=== PATIENT | female | born 1990 | race Caucasian/White ===

== ENCOUNTER 2018-01-25 08:21 | Emergency (ER) | payer MEDICAID, OTHER ==
[~2018-01-25] VITALS: Ht 157.5 cm; Wt 86.0 kg
[~2018-01-25 08:21] MED LIST: ALBUTEROL INH; HYDR28CR14 TOP; IBUP-1984 PO; IBUP-1985 PO; LEVA15HF4 IH; PRENATAL VIT
[2018-01-25 08:50] LABS: BASOPHILS % (AUTO) 0.2 % (0-1); EOSINOPHILS # (AUTO) 0.2 X10'3 (0-0.9); HEMATOCRIT 36.9 % (35.0-45.0); HEMOGLOBIN 11.9 g/dl (12.0-16.0); LYMPHOCYTES # (AUTO) 1.1 X10'3 (1.1-4.8); LYMPHOCYTES % (AUTO) 5.4 % (21-51); MEAN CORPUSCULAR HEMOGLOBIN 23.5 PG (27.0-31.0); MEAN CORPUSCULAR HGB CONC 32.1 % (33.0-36.5); MEAN CORPUSCULAR VOLUME 73.3 FL (78-98); MEAN PLATELET VOLUME 7.8 FL (7.4-10.4); MONOCYTES % (AUTO) 4.6 % (2-12); NEUTROPHILS # (AUTO) 18.8 X10'3 (1.8-7.7); NEUTROPHILS % (AUTO) 88.8 % (42-75); PLATELET COUNT 422 X10'3 (140-440); RED BLOOD COUNT 5.03 X10'6 (4.20-5.60); RED CELL DISTRIBUTION WIDTH 16.3 % (11.5-14.5); WHITE BLOOD COUNT 21.2 X10'3 (4.5-11.0)
[2018-01-25 09:07] LABS: CLARITY,URINE SLIGHTLY CLOUDY (Clear); COLOR,URINE YELLOW (Yellow); GLUCOSE, URINE NEGATIVE (Neg); KETONES,URINE NEGATIVE (Neg); LEUKOCYTE ESTERASE ,URINE MODERATE (Neg); NITRITES, URINE NEGATIVE (Neg); OCCULT BLOOD,URINE SMALL (Neg); PH,URINE 6.5 (4.8-8.0); PROTEIN,URINE TRACE mg/dl (Neg); URINE HCG NEGATIVE (NEG)
[2018-01-25 09:09] LABS: INR 1.1 INR; PROTHROMBIN TIME 11.5 SECONDS (9.0-12.0)
[2018-01-25 09:11] LABS: UA COLLECTION TYPE CLN CATCH MIDSTREAM
[2018-01-25 09:14] LABS: ALANINE AMINOTRANSFERASE 33 U/L (12-78); ALBUMIN 4.2 G/DL (3.4-5.0); ALBUMIN/GLOBULIN RATIO 0.9 (1.1-1.5); ALKALINE PHOSPHATASE 83 IU/L (46-116); ANION GAP 9 (8-16); ASPARTATE AMINO TRANSFERASE 14 U/L (10-37); BLOOD UREA NITROGEN 12 MG/DL (7-18); BUN/CREATININE RATIO 11.5 (6.6-38.0); CALCIUM 9.2 MG/DL (8.5-10.1); CHLORIDE 101 MMOL/L (99-107); CREATININE 1.04 MG/DL (0.40-0.90); GLUCOSE 104 MG/DL (70-104); LIPASE 125 U/L (73-393); POTASSIUM 3.4 MMOL/L (3.5-5.1); SODIUM 137 MMOL/L (135-145); TOTAL CARBON DIOXIDE 26.6 MMOL/L (24-32); TOTAL PROTEIN 8.7 G/DL (6.4-8.2); eGFR 65 ML/MIN
[2018-01-25 09:14] LABS: MUCUS STRANDS NONE SEEN /LPF (Neg); SQUAMOUS EPITHELIAL CELL,UR MODERATE /LPF (FEW); WBC,URINE 30-50 /HPF (0-4)
[2018-01-25 09:15] LABS: BACTERIA,URINE FEW /HPF (Neg)
[2018-01-25] MEDS ORDERED: ondansetron/PF 4mg/2ml inj IV ONE ×2 (09:25→10:20)
[2018-01-25] MEDS ORDERED: normal saline 1000ml 1,000 ML IV ONE (09:25)
[2018-01-25] MEDS ORDERED: morphine 2 MG/ML inj. syringe IV ONE (10:20)
[2018-01-25] MEDS ORDERED: morphine 4 MG/ML inj SYRINge IV ONE (11:00)
[2018-01-25] MEDS ORDERED: DOXY100C43 PO (11:34)
[2018-01-25] MEDS ORDERED: METR500T PO (11:34)
[2018-01-25] MEDS ORDERED: CefTRIAXone 250MG IM Kit w/LIDOcaine IM ONE (11:35)
[2018-01-25 11:52] VITALS: BP 127/65
== END 2018-01-25 11:54 | disposition home or self-care (01) ==
LOC: ER 08:21
DX: K52.9 Noninfective gastroenteritis and colitis, unspecified (principal); N73.9 Female pelvic inflammatory disease, unspecified; J45.909 Unspecified asthma, uncomplicated; F12.90 Cannabis use, unspecified, uncomplicated; Z98.890 Other specified postprocedural states; Z91.011 Allergy to milk products; Z88.8 Allergy status to other drugs, medicaments and biological substances; Z79.899 Other long term (current) drug therapy
CPT/HCPCS: 36415; 74176; 80053; 81001; 81025; 83605; 83690; 84145; 85025; 85610; 87088; 96372; 96374; 96375; 96376; 99284; J0696; J2270; J2405; J7030

== ENCOUNTER 2018-05-25 08:11 | Emergency (ER) | payer MEDICAID ==
[~2018-05-25] VITALS: Ht 157.5 cm; Wt 55.5 kg
[~2018-05-25 08:11] MED LIST changes: -HYDR28CR14 TOP; -IBUP-1984 PO; -IBUP-1985 PO; -PRENATAL VIT
[2018-05-25 09:02] LABS: CLARITY,URINE CLOUDY (Clear); COLOR,URINE YELLOW (Yellow); GLUCOSE, URINE NEGATIVE (Neg); KETONES,URINE TRACE mg/dl (Neg); LEUKOCYTE ESTERASE ,URINE LARGE (Neg); NITRITES, URINE POSITIVE (Neg); OCCULT BLOOD,URINE MODERATE (Neg); PH,URINE 7.5 (4.8-8.0); PROTEIN,URINE 30 mg/dl (Neg)
[2018-05-25 09:03] LABS: UA COLLECTION TYPE CLN CATCH MIDSTREAM
[2018-05-25 09:18] LABS: MUCUS STRANDS FEW /LPF (Neg); SQUAMOUS EPITHELIAL CELL,UR MODERATE /LPF (FEW)
[2018-05-25 09:20] LABS: AMORPHOUS PHOSPHATES 1+; BACTERIA,URINE 4+ /HPF (Neg); WBC,URINE TNTC /HPF (0-4)
[2018-05-25 09:21] LABS: RENAL CELLS, URINE FEW /HPF
[2018-05-25] MEDS ORDERED: LEVO500T2 PO (09:43)
[2018-05-25] MEDS ORDERED: FLUT16SP2 BOTHNARES (09:43)
[2018-05-25] MEDS ORDERED: DEC4T PO (09:43)
[2018-05-25 09:52] VITALS: BP 120/71
== END 2018-05-25 09:53 | disposition home or self-care (01) ==
LOC: ER 08:11
DX: J01.00 Acute maxillary sinusitis, unspecified (principal); N39.0 Urinary tract infection, site not specified; J45.909 Unspecified asthma, uncomplicated; F12.90 Cannabis use, unspecified, uncomplicated; Z88.8 Allergy status to other drugs, medicaments and biological substances; Z79.899 Other long term (current) drug therapy
CPT/HCPCS: 81001; 87077; 87088; 87186; 99283

== ENCOUNTER 2018-08-17 08:04 | Emergency (ER) | payer MEDICAID ==
[~2018-08-17] VITALS: Ht 157.5 cm; Wt 78.6 kg
[~2018-08-17 08:04] MED LIST changes: +DEC4T PO; +FLUT16SP2 BOTHNARES
[2018-08-17 08:05] VITALS: BP 109/82
== END 2018-08-17 10:04 | disposition home or self-care (01) ==
LOC: ER 08:06
DX: S01.511A Laceration without foreign body of lip, initial encounter (principal); J45.909 Unspecified asthma, uncomplicated; F12.90 Cannabis use, unspecified, uncomplicated; Z98.890 Other specified postprocedural states; Z88.8 Allergy status to other drugs, medicaments and biological substances; Z79.899 Other long term (current) drug therapy; W22.8XXA Striking against or struck by other objects, initial encounter; Y93.89 Activity, other specified; Y92.89 Other specified places as the place of occurrence of the external cause; Y99.8 Other external cause status
CPT/HCPCS: 12011; 99283

== ENCOUNTER 2019-08-08 21:20 | Emergency (ER) | payer MEDICAID ==
[~2019-08-08] VITALS: Ht 154.9 cm; Wt 82.8 kg
[2019-08-08 21:23] VITALS: BP 152/97
[2019-08-08] MEDS ORDERED: mupirocin 2% ointment 22GM TP STA (22:21)
[2019-08-08] MEDS ORDERED: mupirocin 2% nasal ointment 1gm UD NS STA (22:25)
[2019-08-08] MEDS ORDERED: MUPI22OI30 TOP (22:45)
[2019-08-08] MEDS ORDERED: DOXY100C2 PO (22:45)
== END 2019-08-08 23:17 | disposition home or self-care (01) ==
LOC: ER 21:21
DX: L08.89 Other specified local infections of the skin and subcutaneous tissue (principal); M35.9 Systemic involvement of connective tissue, unspecified; M79.89 Other specified soft tissue disorders; J45.909 Unspecified asthma, uncomplicated; F12.90 Cannabis use, unspecified, uncomplicated; Z87.01 Personal history of pneumonia (recurrent); Z98.890 Other specified postprocedural states; Z91.018 Allergy to other foods; Z88.8 Allergy status to other drugs, medicaments and biological substances; Z79.899 Other long term (current) drug therapy
CPT/HCPCS: 99283

== ENCOUNTER 2019-09-19 10:02 | Emergency (ER) | payer MEDICAID ==
[~2019-09-19] VITALS: Ht 157.5 cm; Wt 81.8 kg
[2019-09-19] MEDS ORDERED: HYDROcodone/acetaminophen 5mg/325mg tablet PO ONE (11:45)
[2019-09-19] MEDS ORDERED: ketorolac trometh. 30mg/ml inj. IM ONE (11:45)
[2019-09-19] MEDS ORDERED: ketorolac trometh inj. 60 MG/2 ML VIAL IM ONE (11:45)
[2019-09-19] MEDS ORDERED: ACET-3067 PO (13:06)
[2019-09-19] MEDS ORDERED: IBUP-1984 PO (13:06)
[2019-09-19 13:14] VITALS: BP 132/67
== END 2019-09-19 13:15 | disposition home or self-care (01) ==
LOC: ER 10:03
DX: S29.019A Strain of muscle and tendon of unspecified wall of thorax, initial encounter (principal); M54.9 Dorsalgia, unspecified; J45.909 Unspecified asthma, uncomplicated; F12.90 Cannabis use, unspecified, uncomplicated; Z87.01 Personal history of pneumonia (recurrent); Z98.890 Other specified postprocedural states; Z88.8 Allergy status to other drugs, medicaments and biological substances; Z79.899 Other long term (current) drug therapy; X58.XXXA Exposure to other specified factors, initial encounter; Y93.89 Activity, other specified; Y92.89 Other specified places as the place of occurrence of the external cause; Y99.8 Other external cause status
CPT/HCPCS: 72074; 96372; 99283; J1885

== ENCOUNTER 2023-06-18 18:06 | Inpatient (IN) | payer MEDICAID ==
[~2023-06-18] VITALS: Ht 157.5 cm; Wt 80.0 kg
[2023-06-18 19:32] LABS: BILIRUBIN,URINE NEGATIVE (Neg); CLARITY,URINE SLIGHTLY CLOUDY (Clear); COLOR,URINE YELLOW (Yellow); GLUCOSE, URINE NEGATIVE (Neg); KETONES,URINE NEGATIVE (Neg); LEUKOCYTE ESTERASE ,URINE NEGATIVE (Neg); NITRITES, URINE NEGATIVE (Neg); OCCULT BLOOD,URINE NEGATIVE (Neg); PROTEIN,URINE TRACE mg/dl (Neg); UROBILINOGEN,URINE 0.2 E.U/dL (0.2-1.0)
[2023-06-18 19:33] LABS: URINE HCG NEGATIVE (NEG)
[2023-06-18 20:01] LABS: BASOPHILS % (AUTO) 0.1 % (0-1); EOSINOPHILS % (AUTO) 0 % (0-6); HEMATOCRIT 38.2 % (35.0-45.0); HEMOGLOBIN 12.2 g/dl (12.0-16.0); LYMPHOCYTES # (AUTO) 1.6 X10'3 (1.1-4.8); LYMPHOCYTES % (AUTO) 10.3 % (21-51); MEAN CORPUSCULAR HEMOGLOBIN 24.5 PG (27.0-31.0); MEAN CORPUSCULAR HGB CONC 31.9 g/dL (33.0-36.5); MEAN CORPUSCULAR VOLUME 76.9 FL (78-98); MONOCYTES # (AUTO) 0.7 X10'3 (0-0.9); MONOCYTES % (AUTO) 4.3 % (2-12); NEUTROPHILS # (AUTO) 13.7 X10'3 (1.8-7.7); NEUTROPHILS % (AUTO) 85.3 % (42-75); PLATELET COUNT 417 X10'3 (140-440); RED BLOOD COUNT 4.97 X10'6 (4.20-5.60); RED CELL DISTRIBUTION WIDTH 15.7 % (11.5-14.5); WHITE BLOOD COUNT 16.1 X10'3 (4.5-11.0)
[2023-06-18 20:14] LABS: ALANINE AMINOTRANSFERASE 18 U/L (12-78); ALBUMIN/GLOBULIN RATIO 1.1 (1.1-1.5); ALKALINE PHOSPHATASE 58 IU/L (46-116); ANION GAP 6 (8-16); ASPARTATE AMINO TRANSFERASE 11 U/L (10-37); BILIRUBIN,TOTAL 0.4 MG/DL (0.1-1.0); BLOOD UREA NITROGEN 10 MG/DL (7-18); BUN/CREATININE RATIO 13.2 (10.0-20.0); CALCIUM 8.6 MG/DL (8.5-10.1); CHLORIDE 104 MMOL/L (99-107); CREATININE 0.76 MG/DL (0.40-0.90); GLUCOSE 98 MG/DL (70-104); LIPASE 67 U/L (16-77); POTASSIUM 3.8 MMOL/L (3.5-5.1); SODIUM 140 MMOL/L (135-145); TOTAL CARBON DIOXIDE 29.7 MMOL/L (24-32); TOTAL PROTEIN 7.7 G/DL (6.4-8.2); eCRCL 86 ML/MIN; eGFR 89 ML/MIN
[2023-06-18 20:21] LABS: UA COLLECTION TYPE CLN CATCH MIDSTREAM
[2023-06-18 20:22] LABS: BACTERIA,URINE FEW /HPF (Neg); MUCUS STRANDS FEW /LPF (Neg); SQUAMOUS EPITHELIAL CELL,UR FEW /LPF (FEW); WBC,URINE 0-4 /HPF (0-4)
[2023-06-18 20:23] LABS: AMORPHOUS PHOSPHATES 3+
[2023-06-18] MEDS: normal saline 1000ml 1,000 ML IV SCH ×2 (21:44→22:15)
[2023-06-18] MEDS: piperacillin/tazo 3.375gm/50ml 50 ML IV SCH (21:45)
[2023-06-18] MEDS ORDERED: magnesium 2GM in 50ml NS 50 ML IV PRN (22:15)
[2023-06-18] MEDS ORDERED: ondansetron/PF 4mg/2ml inj IV PRN (22:15)
[2023-06-18] MEDS ORDERED: mag hydrox/Alum hydrox/simeth 30ml oral suspension PO PRN (22:15)
[2023-06-18] MEDS ORDERED: morphine 2 MG/ML inj. syringe IV PRN ×2 (22:15)
[2023-06-18] MEDS ORDERED: potassium Cl 40MEQ/1/2NS 520ml 520 ML IV PRN (22:15)
[2023-06-18] MEDS ORDERED: magnesium hydroxide 30ml (MOM) UD suspension PO PRN (22:15)
[2023-06-18] MEDS ORDERED: magnesium 4gm in 100ml NS 100 ML IV PRN (22:15)
[2023-06-18] MEDS ORDERED: potassium Cl 20 mEq SR tablet PO PRN ×2 (22:15)
[2023-06-18] MEDS ORDERED: magnesium Cl slow-release 64mg tablet PO PRN (22:15)
[2023-06-18] MEDS ORDERED: AMOX875T10 PO (23:49)
[2023-06-19] VITALS (23 sets, daily range): BP systolic 97–127; BP diastolic 54–81; PULSE 64–77; RESP 12–18; TEMP 97.7–97.8; O2SAT 93–99
[2023-06-19] MEDS: morphine 2 MG/ML inj. syringe IV SCH
[2023-06-19] MEDS: metroNIDAZOLE-Flagyl 500mg/NS 100 ML IV SCH (00:47)
[2023-06-19] MEDS: heparin, porcine 5000 units/ml vial SQ SCH ×2 (07:51→20:00)
[2023-06-19] MEDS: CefTRIAXone/D5W-Rocephin 1gm 50 ML IV SCH (07:51)
[2023-06-19] MEDS: K and/or MAG REPLACEMENT MC SCH (08:00)
[2023-06-19 08:06] LABS: CHOL/HDL RATIO 2.9 (0.00-4.99); CHOLESTEROL 130 MG/DL (0-200); HDL CHOLESTEROL 45 MG/DL (35-60); LDL CHOLESTEROL 74 MG/DL (50-100); TRIGLYCERIDES 81 MG/DL (20-135)
[2023-06-19] MEDS ORDERED: labetalol 20mg/4ml (5mg/ml) syringe IV PRN (13:40)
[2023-06-19] MEDS ORDERED: hydrALAZINE 20mg/ml inj. IV PRN (13:40)
[2023-06-19] MEDS ORDERED: ondansetron/PF 4mg/2ml inj IV PRN (13:40)
[2023-06-19] MEDS ORDERED: fentaNYL/PF 50MCG/1 ML 2ML syringe IV PRN ×2 (13:40)
[2023-06-19] MEDS ORDERED: morphine 4 MG/ML inj SYRINge IV PRN (13:40)
[2023-06-19] MEDS ORDERED: morphine 2 MG/ML inj. syringe IV PRN (13:40)
[2023-06-19] MEDS: INDOCYANINE GREEN 25 MG/10 ML VIAL IV ONE (14:11)
[2023-06-19] MEDS ORDERED: BUPIVAcaine 2.5mg/ml inj 50ml vial (contains preservative) ONE (15:16)
[2023-06-19] MEDS ORDERED: LIDOcaine 1% (10mg/ml)w/preservative inj. 20ml MDV ONE (15:16)
[2023-06-19] MEDS ORDERED: sevoflurane 250ml liquid IH ONE (15:40)
[2023-06-19] MEDS ORDERED: propofol inj 20 ML IV ONE (15:43)
[2023-06-19] MEDS ORDERED: meperidine/PF 50mg/ml syringe ONE (15:43)
[2023-06-19] MEDS ORDERED: LIDOcaine 2% (20mg/ml) 5ml vial ONE (15:43)
[2023-06-19] MEDS ORDERED: rocuronium 10mg/ml inj IV ONE (15:44)
[2023-06-19] MEDS ORDERED: dexamethasone sod phosphate 4mg/ml inj. ONE (15:50)
[2023-06-19] MEDS ORDERED: ondansetron/PF 4mg/2ml inj ONE (15:51)
[2023-06-19] MEDS ORDERED: acetaminophen 1,000mg/100ml IV 100 ML IV ONE (15:53)
[2023-06-19] MEDS ORDERED: ceFAZolin 1000mg inj ONE ×2 (15:55)
[2023-06-19] MEDS: BUPIVAcaine/PF 2.5 mg/ml (0.25%) 30ml vial IJ ONE (16:00)
[2023-06-19] MEDS ORDERED: naloxone 0.4 mg/ml inj IV PRN (17:00)
[2023-06-19] MEDS: oxyCODONE/APAP 5-325mg tablet PO PRN (19:04)
[2023-06-19] MEDS: ringers solution, lacted 1,000 ML IV SCH (20:10)
[2023-06-19] MEDS: normal saline 1000ml 1,000 ML IV SCH (20:25)
[2023-06-20 06:00] VITALS: BP 99/61; PULSE 61; RESP 14; TEMP 98.7; O2SAT 97
[2023-06-20 08:00] VITALS: RESP 14; O2SAT 97
[2023-06-20 10:00] VITALS: BP 112/76; PULSE 79; RESP 16; TEMP 98.4; O2SAT 97
== END 2023-06-20 11:36 | disposition home or self-care (01) | DRG 263 ==
LOC: ER 18:06 → ED HOLD 22:18 → SUR 3N 06-19 19:20
PROVIDERS: ADMIT Surgery Surgical Critical Care; ATTEND Internal Medicine
PROC: BF131ZZ Fluoroscopy of Gallbladder and Bile Ducts using Low Osmolar Contrast (ICD-10-PCS; 2023-06-19)
PROC: 8E0W4CZ Robotic Assisted Procedure of Trunk Region, Percutaneous Endoscopic Approach (ICD-10-PCS; 2023-06-19)
PROC: 0FT44ZZ Resection of Gallbladder, Percutaneous Endoscopic Approach (ICD-10-PCS; principal; 2023-06-19 15:40)
DX: K80.00 Calculus of gallbladder with acute cholecystitis without obstruction (principal); J45.909 Unspecified asthma, uncomplicated; Z97.5 Presence of (intrauterine) contraceptive device; Z98.891 History of uterine scar from previous surgery
CPT/HCPCS: 36415; 76700; 80053; 80061; 81001; 81025; 83605; 83690; 84145; 85025; 86704; 86705; 87040; 87081; 87340; 99285; A4215; A4618; A7000; G0378; J0131; J0690; J0696; J1100; J1644; J2175; J2270; J2405; J2543; J2704; J2710; J3490; J7030; J7120